=== PATIENT | male | born 1935 | race African-American/Black ===

== ENCOUNTER 2016-11-24 12:25 | Emergency (ER) | payer MEDICARE, OTHER ==
[2016-11-24] MEDS ORDERED: DILAUDID 1 MG/ML AMP ONE (14:08)
== END 2016-11-24 16:38 | disposition home or self-care (01) ==
LOC: ER 12:25
DX: S70.01XA Contusion of right hip, initial encounter (principal); W19.XXXA Unspecified fall, initial encounter; Y92.481 Parking lot as the place of occurrence of the external cause; J02.9 Acute pharyngitis, unspecified; Z79.82 Long term (current) use of aspirin; I11.0 Hypertensive heart disease with heart failure; I50.9 Heart failure, unspecified; E11.9 Type 2 diabetes mellitus without complications
CPT/HCPCS: 73502; 96372; 99283; J1170